=== PATIENT | female | born 1985 | race Caucasian/White ===

== ENCOUNTER → 2020-10-17 15:04 | Outpatient (CLI) | payer OTHER, SELFPAY ==
--- NOTE | ~2020-10-17 | US_ITS ---
EXAMINATION: US OB <=14 wk fetus w TV EXAM DATE: 10/17/2020 15:39 INDICATION: O36.80X9 - with inconclusive viability, other fetus. 1st trimester. TECHNIQUE: Pelvic obstetrical transabdominal sonogram was performed by a technologist. There are mu ltiple grayscale and Doppler images available for interpretation. There are no earlier studies of th is gestation for comparison. FINDINGS: Uterus measures 11.3 x 4.7 x 6.7 cm. There is intrauterine gestation sac. pole with heart rate confirmed at 175 beats per minute. The 1.7 cm crown-rump length corresponds to estimated gestational age by ultrasound of 8 weeks 1 day, estimated date of confinement 05/28/2021. Yolk sac i s identified. There is no sonographic evidence of subchorionic hemorrhage. Both ovaries are ident ified and are morphologically normal, the right likely contains the corpus luteal cyst. IMPRESSION: Early live intrauterine gestation, age by ultrasound 8 weeks 1 day. Reviewed, dictated and finalized at location A. IMPRESSION: Early live intrauterine gestation, age by ultrasound 8 weeks 1 day .
== END ==
PROVIDERS: Visit Provider Student in an Organized Health Care Education/Training Program
DX: O36.80X9 Pregnancy with inconclusive fetal viability, other fetus (principal); Z3A.08 8 weeks gestation of pregnancy
CPT/HCPCS: 76801; 76817

== ENCOUNTER 2020-12-04 11:02 | Observation (INO) | payer OTHER, SELFPAY ==
[2020-12-04 11:24] VITALS: BP 133/71; PULSE 94
[2020-12-04 11:40] VITALS: BMI 41.8
--- NOTE | 2020-12-04 11:41 | OBADM ---
This patient, Alejandrina Garza, admitted to the OB room OB Post 116 for observation. Patient/family oriented to hospital policies and general routines including ID bracelet, bed and alarms, visiting hours, pain management, procedures, bathroom and other care routines, personal items, smoking policy, room service/diet, and visiting hours. Patient/Family are encouraged to report perceived risks to care and to ask questions if they do not understand what they are told or what they should do.
--- NOTE | 2020-12-04 11:45 | PC.NURSE ---
FHT doppled at 181
[2020-12-04 12:17] LABS: Add Urine Microscopic? YES; Appearance Urine Cloudy (Clear); Bacteria Urine Trace /hpf; Bilirubin Urine Negative (Negative); Blood Urine 2+ (Negative); Color Urine Yellow (Yellow); Glucose Urine UA Negative (Negative); Ketones Urine Negative (Negative); Leukocyte Esterase Ur Negative LEU/UL (NEGATIVE); Mucus Urine Rare /lpf; Nitrate Urine Negative (Negative); Protein Urine 1+ mg/dL (Negative); RBC Urine 21-50 /hpf (0-2); Specific Grav Ur 1.014 (1.001-1.035); Squamous Epithelial Cell Urine Many /hpf (Few); Urobilinogen Urine Negative mg/dL (<2.0); WBC Urine 0-3 /hpf (0-3)
[2020-12-04 12:30] VITALS: RESP 16; TEMP 37.3
--- NOTE | 2020-12-04 13:08 | PC.NURSE ---
6935- Spoke with Dr. Goodrich regarding patient admission for sever lower back pain 11/14. Patient states the pain in the middle of her back, crushing spinal pain. Patient reports no urinary symptoms, vaginal bleeding, leakage or abdominal pain. Urinalysis results discussed with . CARON doppled at 181. Per MD, patient should go to ER for a complete workup.
--- NOTE | 2020-12-04 13:10 | PC.NURSE ---
1230- In patient room, at bedside discussing plan of care with patient after talking to Dr. Goodrich. Patient became defensive, stating that I need to be prescribed drugs to go home with or something needs to be figured out, no one gives a shit about me. This is causing something to be wrong. I have never had this type of pain before being . Informed patient that I would speak to the ER about their procedures for the waiting room due to Covid. Discussed if patient had taken anything with tylenol in it since her allergy, she had been previously prescribed hydrocodone by her primary physician in December of last year. Patient stated that she has never taken that from him. Will discuss with the ER at this time their protocol.
--- NOTE | 2020-12-04 13:16 | PC.NURSE ---
1237- Spoke with ER charge nurse Lucila on procedures to be seen in the ER. Patient will have to be taken to the waiting room and wait to be seen.
--- NOTE | 2020-12-04 13:20 | PC.NURSE ---
6260- In patient room, discussing with patient that ER will see her but she will have to wait in the waiting room . Patient states that she is refusing to go to ER and doesnt want to leave until what is going on is figured out. I will call Dr. Goodrich to see if she has any other options for patient at this time.
--- NOTE | 2020-12-04 13:22 | PC.NURSE ---
1248- Spoke with Dr. Goodrich. Per her order, patient is to be discharged form OB and should be seen for a full workup in the ER or can go to an urgent care to be seen.
--- NOTE | 2020-12-04 13:27 | PC.NURSE ---
1250- In patient room, discussing with patient her plan of care. Patient needs to be seen in ER, patient is refusing and will go home. Will gather patient discharge instructions. patient agreeable to plan.
--- NOTE | 2020-12-04 13:29 | PC.NURSE ---
1300- In room to discharge patient. Patient outwardly unhappy, told this RN that If i go home and miscarry my baby this is your fault. Also accused this RN of telling her to go home and take tylenol regardless of her allergy. Explained to her that I was questioning if she had ever taken hydrocodone before, which was in her medication list, in case she could take that medication for her discomfort. Explained the importance of not taking tylenol if she has an allergy to it. Discharge instructions given to patient, patient states that she will be going somewhere else to be seen.
--- NOTE | 2020-12-04 13:35 | PC.NURSE ---
1305- Patient ambulated off the unit, Informed Dr. Goodrich of patient decision to be discharged to home and refusing to go to ER. Dr. Goodrich will see patient tomorrow in the office.
--- NOTE | 2020-12-22 13:02 | PM.OBTRLD ---
OB - Triage/Final Diagnosis Visit Information Comments/Additional reasons for admission: I have assessed the risk for this patient, Alejandrina Garza, and determined that she would benefit from observation care. Evaluation Laboratory results: Laboratory Tests 12/04/20 11:19 Urine Color Yellow Urine Appearance Cloudy H Urine pH 8.0 Ur Specific [place] 1.014 Urine Protein 1+ H Urine Glucose (UA) Negative Urine Ketones Negative Ur Blood (Man) 2+ H Urine Nitrate Negative Urine Bilirubin Negative Urine Urobilinogen Negative Ur Leukocyte Esterase Negative Urine RBC 21-50 H Urine WBC 0-3 Ur Squamous Epith Cells Many H Urine Bacteria Trace Urine Mucus Rare Final Diagnosis (1) Lower back pain: Code(s): M54.5 - Low back pain Status: Acute
== END 2020-12-04 13:05 | disposition home or self-care (01) ==
PROVIDERS: Admitting Provider Student in an Organized Health Care Education/Training Program; PCP Emergency Medicine; Visit Provider Student in an Organized Health Care Education/Training Program
DX: O99.891 Other specified diseases and conditions complicating pregnancy (principal); M54.5 Low back pain; Z3A.14 14 weeks gestation of pregnancy
CPT/HCPCS: 81001; 87086; 87088; G0378; G0379

== ENCOUNTER → 2021-01-16 11:20 | Outpatient (CLI) | payer OTHER, SELFPAY ==
--- NOTE | ~2021-01-16 | US_ITS ---
EXAMINATION: US OB /maternal detail DATE: 01/16/2021 12:16 INDICATION: Encounter for other specified screening. TECHNIQUE: Real-time ultrasound of the pelvis was performed. COMPARISON: Ultrasound 10/17/2020 FINDINGS: There is a single living fetus in breech presentation. The placenta is anterior, 3.9 cm from the cer vix. heart rate is 141 beats per minute (bpm). The amniotic fluid volume is subjectively normal . The following biometric data were obtained: Biparietal diameter (BPD): 5.0 cm; head circumference (HC): 19.0 cm; abdominal circumference (AC): 15 .9 cm; femur length (FL): 3.3 cm. These measurements are concordant. Estimated weight is 376 g +/- 56 g, which correlates with 26th percentile when 05/28/21 is used as estimated date of delivery. As single measurements, these parameters are each equal to the following estimated gestational ages w ith ranges of +/- 2 standard deviations: BPD: 21 weeks 0 days (19 weeks 2 days - 22 weeks 5 days). HC: 21 weeks 2 days (19 weeks 6 days - 22 weeks 5 days). AC: 21 weeks 0 days (19 weeks 0 days - 23 weeks 1 days). FL: 20 weeks 2 days (18 weeks 3 days - 22 weeks 1 days). estimated gestational age based solely on measurements from this exam is 20 weeks 6 days +/- 1 weeks 3 days. The cerebral ventricles, cerebellum, cisterna magna, nuchal fold, and visualized portions of the spin e are normal. The upper lip is not well visualized. The heart is normal. The diaphragm, stomach, kidn eys, and bladder are normal. There are two umbilical arteries to yield a 3-vessel cord. The cord inse rtion is normal. The arms/hands and legs/feet are normal. IMPRESSION: 1. Single living fetus in breech presentation. 2. Estimated weight is 376 g +/- 56 g, which correlates with 26th percentile when 05/28/21 is u sed as estimated date of delivery. This date was set by ultrasound on 10/17/2020. 3. Normal anatomic survey. Reviewed, dictated and finalized at location A. IMPRESSION: 1. Single living fetus in breech presentation. 2. Estimated weight is 376 g +/- 56 g, which correlates with 26th percen tile when 05/28/21 is used as estimated date of delivery. This date was set by agnes loya on 10/17/2020. 3. Normal anatomic survey.
== END ==
PROVIDERS: Visit Provider Obstetrics & Gynecology
DX: Z34.92 Encounter for supervision of normal pregnancy, unspecified, second trimester (principal); Z3A.20 20 weeks gestation of pregnancy
CPT/HCPCS: 76805

== ENCOUNTER → 2021-03-21 15:04 | Outpatient (CLI) | payer OTHER, SELFPAY ==
--- NOTE | ~2021-03-21 | US_ITS ---
EXAMINATION: US OB follow up DATE: 03/21/2021 15:30 INDICATION: Follow-up growth TECHNIQUE: Real-time transabdominal obstetric ultrasound. Comparison to prior examinations dated 01/05 and 10/17/2020 FINDINGS: screening. Evaluate growth. There is a single living fetus in breech presentation. The placenta is anterior without placenta pre via. cardiac activity and movement is noted with a heart rate of 154 beats per minute. T he amniotic fluid volume is normal. LAMIN measures 10.5 cm. The following biometric data were obtained: BPD: 76mm corresponds to gestational age 30 weeks 3 days. Head circumference: 296mm corresponds to gestational age 32 weeks 5 days. Abdominal circumference: 258mm corresponds to gestational age 30 weeks 0 days. Femur length: 59mm corresponds to gestational age 30 weeks 6 days. Estimated weight: 1598 grams +/- 240grams, 40th percentile.] Limited survey demonstrates a normal appearance to the upper lip. IMPRESSION: 1. Single living intrauterine in breech presentation with an estimated gestational age of 30 weeks 2 days by inititial ultrasound. Appropriate interval growth. 2. Normal placenta. Reviewed, dictated and finalized at location A. [employer] IMPRESSION: 1. Single living intrauterine in breech presentation with an estimat ed gestational age of 30 weeks 2 days by inititial ultrasound. Appropriate int erval growth. 2. Normal placenta.
== END ==
PROVIDERS: Visit Provider Obstetrics & Gynecology
DX: O99.213 Obesity complicating pregnancy, third trimester (principal); Z3A.30 30 weeks gestation of pregnancy
CPT/HCPCS: 76816

== ENCOUNTER → 2021-04-17 12:44 | Outpatient (CLI) | payer OTHER, SELFPAY ==
--- NOTE | ~2021-04-17 | US_ITS ---
EXAMINATION: US OB follow up DATE: 04/17/2021 13:11 INDICATION: growth assessment during third trimester TECHNIQUE: Real-time ultrasound of the pelvis was performed. The interpreting radiologist was not pre sent for the study. COMPARISON: 03/21/2021 FINDINGS: There is a single living fetus in vertex presentation. The placenta is anterior and 8.8 cm from the internal cervical os. cardiac activity and movement are noted. heart rate is 141 beats per minute (bpm). The amniotic fluid index is 16.4 cm which is normal. The following biometric data were obtained: Biparietal diameter (BPD): 8.6 cm; head circumference (HC): 31.6 cm; abdominal circumference (AC): 30 .1 cm; femur length (FL): 6.5 cm. These measurements are concordant. Estimated weight is 2360 g +/- 354 g, which correlates with the 44th percentile when 05/28/2021 is used as estimated date of delivery. As single measurements, these parameters are each equal to the following estimated gestational ages w ith ranges of +/- 2 standard deviations: BPD: 34 weeks 5 days ( 31 weeks 4 days - 37 weeks 5 days). HC: 35 weeks 4 days ( 32 weeks 4 days - 38 weeks 4 days). AC: 34 weeks 1 days ( 31 weeks 1 days - 37 weeks 0 days). FL: 33 weeks 4 days ( 30 weeks 5 days - 36 weeks 4 days). estimated gestational age based solely on measurements from this exam is 34 weeks 4 days +/- 2 weeks 3 days. IMPRESSION: 1. Single living fetus in vertex presentation. 2. Estimated weight is 2360 g +/- 354 g, which correlates with the 44th percentile when 05/28/19 22 is used as estimated date of delivery. 3. Normal amniotic fluid index. Reviewed, dictated and finalized at location F. [employer] IMPRESSION: 1. Single living fetus in vertex presentation. 2. Estimated weight is 2360 g +/- 354 g, which correlates with the 44th p ercentile when 05/28/2021 is used as estimated date of delivery. 3. Normal amniotic fluid index.
== END ==
PROVIDERS: Visit Provider Obstetrics & Gynecology
DX: Z34.93 Encounter for supervision of normal pregnancy, unspecified, third trimester (principal); Z3A.34 34 weeks gestation of pregnancy
CPT/HCPCS: 76816

== ENCOUNTER → 2021-05-15 15:51 | Outpatient (CLI) | payer OTHER, SELFPAY ==
--- NOTE | ~2021-05-15 | US_ITS ---
US OB follow up DATE: 05/15/2021 16:25 INDICATION: Routine care TECHNIQUE: Real-time imaging and Doppler analysis COMPARISON: 04/17/2021 of central ultrasound examination FINDINGS: Live zee intrauterine gestation, fetus in vertex presentation. heart rate of 14 3 bpm. movement was detected. Anterior placenta, lower margin well out of range of the internal os. Amniotic fluid index measures 17.8 cm, within normal range. (5th percentile LAMIN: 7.3 cm; 95th percent ile LAMIN: 23.9 cm. Biparietal diameter 9.47 cm; 38 weeks 4 days Head circumference 33.66 cm; 38 weeks 4 days Abdominal circumference 33.39 cm; 37 weeks 3 days Femur length 7.24 cm; 37 weeks 0 days Composite age by Hadlock formula based upon the current examination would be 37 weeks 6 days +/- 2 we eks 5 days with ALFONZO of 05/30/2021, compared to 05/28/2021 by LMP. Estimated weight is 3238 +/- 485.7 g. Estimated weight GP: 47.4% Femur length/BPD 76.38, within normal range of 71.0-87.0 Head circumference/abdominal circumference 1.01, within normal range of 0.90-1.05 Femur length/abdominal circumference 21.67, within normal range of 20.00-24.00 Femur length/head circumference 21.50, within normal range of 20.89-22.69. IMPRESSION: Estimated weight is 3238 +/- 485.7 Grams Amniotic fluid index 17.8 cm, within normal range Reviewed, dictated and finalized at Location A. Reviewed, dictated and finalized at location A. UCTION ASSEMBLER
== END ==
PROVIDERS: Visit Provider Obstetrics & Gynecology
DX: Z36.9 Encounter for antenatal screening, unspecified (principal); O99.210 Obesity complicating pregnancy, unspecified trimester; Z68.41 Body mass index [BMI] 40.0-44.9, adult; Z3A.00 Weeks of gestation of pregnancy not specified
CPT/HCPCS: 76816

== ENCOUNTER → 2022-03-14 15:35 | Outpatient (CLI) | payer OTHER, SELFPAY ==
--- NOTE | ~2022-03-14 | US_ITS ---
US thyroid INDICATION: Autoimmune thyroiditis TECHNIQUE: Real-time sonographic images of the thyroid gland were obtained. COMPARISON: No prior studies for comparison. FINDINGS: The right thyroid lobe measures 5.8 x 1.9 x 1.9 cm. The left thyroid lobe measures 5.1 x 1 .7 x 1.9 cm. There is diffusely heterogeneous echotexture and echogenicity throughout the thyroid gla nd. No discrete nodules identified. Normal vascular flow is present. IMPRESSION: 1. Mildly enlarged heterogeneous thyroid gland without discrete nodule. Reviewed, dictated and finalized at location A. [employer]
== END ==
PROVIDERS: PCP Emergency Medicine; Visit Provider Emergency Medicine
DX: E06.3 Autoimmune thyroiditis (principal)
CPT/HCPCS: 76536

== ENCOUNTER 2025-02-16 12:47 | Observation (INO) | payer OTHER, SELFPAY ==
--- OUTSIDE RECORDS SUMMARY | 2023-12-24 09:45 | XMS_ITS ---
Author Organization [facility] Address [address] [place] [address] Care Team Providers Care Apprentice Embalmer Name Role Phone Iliana Jimenes Primary Care Provider [phone] Iliana Jimenes MD Unavailable Unavailable REASON FOR VISIT yd/4 month follow up/flc Encounters Encounter Location Date Provider Diagnosis [facility] [address] [facility] [address] [place] [address] 12/24/2023 Iliana Jimenes Plan Of Treatment No Information Progress Notes * Alejandrina WEBB MDOB:1985 (39 yo F)Acc No.[id number]:12/24/2023 Progress Notes Patient: Alejandrina WHYTE Appointment Provider: Brigitte JIMENES MD :1985 A ge:38 Y S ex:Female Date:12/24/2023 Address:[address] [facility] Subjective: * Chief Complaints: * 1 . Yd/4 month follow up/flc. * Medical History: Objective: * Vitals: Assessment: Plan: * Treatment: * Billing Information: * Visit Code: * Procedure Codes: * Electronic signature of Iliana Jimenes MD on 02/16/2025 at 02:04 PM TANK FARM OPERATOR Sign off status: Pending * Appointment Provider: Brigitte JIMENES MD Date: 0 12/24/2023 Generated for Printi ng/Faxing/eTransmitting on: 1 04/18/2024 02:04 PM TANK FARM OPERATOR
--- OUTSIDE RECORDS SUMMARY | 2025-01-18 08:40 | XMS_ITS ---
Author Organization [facility] Address [address] [place], [place] [address] Care Team Providers Care Mobile Homes Repairer Name Role Phone Adriane Mccormick Unavailable [phone] REASON FOR VISIT 1 month f/u Medications Medication SIG (Take, Route, Frequency, Duration) Notes Start Date End Date Status SUMAtriptan Succinate 50 MG Tablet 1 tablet as needed, may take second dose at least 2 hours after first dose up to 4 tablets per day as needed Orally Once a day Active Benadryl Allergy 25 MG Tablet 1 tablet a t bedtime as needed Orally Once a day Active Hydroxychloroquine Sulfate 2 00 MG Tablet as directed Orally Active Active Synthroid 75 MCG Tablet 1 tablet in the morning on an empty stomach Orally Once a day Active ZyrTEC Allergy 10 MG Tablet 1 tablet Ora lly Once a day Active Flonase Allergy Relief 50 MCG/ACT Suspension 1 spray in each nostril Nasally Twice a day Active Vitamin B Complex Ac tive Vitamin D3 Active Magnesium Active Candy Allergy 180 MG Tablet 1 tablet S wallow whole with water; do not take with fruit juices. Orally Once a day Active Ibuprofen Active Encounters Encounter Location Date Provider Diagnosis [facility] Dr. Mccormick [address] [place] [id number] 01/18/2025 Adriane Mccormick Plan Of Treatment Next Appt Details Provider Name:Adriane Mccormick, 12:40:00 PM, [address] [place] [address], [phone], History and Physical Notes * HPI (History of Present Illness) Category Sub-Category Detail Notes Category Not es History of Present Illness Verbal consent provi ded by patient to proceed with this visit. This visit was performed in office via provider and patient located in primary care office with real time audio with video. Progress Notes * Alejandrina WEBBDOB:1985 ([age] yo F)Acc No.[id number]:01/18/2025 Progress Note Patient: Alejandrina Hewitt Provider: Torres Mccormick MD :1985 A ge:39 Y S ex:Female Date:01/18/2025 Phone: Address:[address] [place], [place] [address] Subjective: * Chief Complaints: * 1 month f/u * HPI: H istory of Present Illness: Verbal consent provided by patient to proceed with this visit. This visit was performed in office via provider and patient located in primary care office with real time audio with video. * Medications: T akingAllegra Allergy 180 MG Tablet 1 tablet Swallow whole with water; do not take with fruit juices. Orally Once a day Ibuprofen Magnesium Vitamin D3 Vitamin B Complex Flonase Allergy Relief 50 MCG/ACT Suspension 1 spray in each nostril Nasally Twice a day ZyrTEC Allergy 10 MG Tablet 1 tablet Orally Once a day Benadryl Allergy 25 MG Tablet 1 tablet at bedtime as needed Orally Once a day SUMAtriptan Succinate 50 MG Tablet 1 tablet as needed, may take second dose at least 2 hours after first dose up to 4 tablets per day as needed Orally Once a day Hydroxychloroquine Sulfate 200 MG Tablet as directed Orally Synthroid 75 MCG Tablet 1 tablet in the morning on an empty stomach Orally Once a day Taking Candy Allergy 180 MG Tablet 1 tablet Swallow whole with water; do not take with fruit juices. Orally Once a day Taking Ibuprofen Taking Magnesium Taking Vitamin D3 Taking Vitamin B Complex Taking Flonase Allergy Relief 50 MCG/ACT Suspension 1 spray in each nostril Nasally Twice a day Taking ZyrTEC Allergy 10 MG Tablet 1 tablet Orally Once a day Taking Benadryl Allergy 25 MG Tablet 1 tablet at bedtime as needed Orally Once a day Taking SUMAtriptan Succinate 50 MG Tablet 1 tablet as needed, may take second dose at least 2 hours after first dose up to 4 tablets per day as needed Orally Once a day Taking Taking Hydroxychloroquine Sulfate 200 MG Tablet as directed Orally Taking Synthroid 75 MCG Tablet 1 tablet in the morning on an empty stomach Orally Once a day * Electronic signature of Mychal Mccormick MD on 02/16/2025 at 02:04 PM MANAGER BODY Sign off status: Pending * Provider: Torres Mccormick MD Date: 1 Generated for Kyra sykes/Chintan/Alexandra on: 04/18/2024 02:04 PM MANAGER BODY
--- NOTE | 2025-02-16 13:28 | PC.NURSE ---
1528 - Dr. Dallin Enciso notified that pt is refusing the medication he prescribed for discharge. New orders received. Pt SAYDA.
[2025-02-16 13:33] VITALS: BP 143/66; PULSE 87
--- NOTE | 2025-02-16 13:36 | OBADM ---
This patient, Alejandrina Webb, admitted to the OB room OB Post 115 for observation. Patient/family oriented to hospital policies and general routines including ID bracelet, bed and alarms, visiting hours, pain management, procedures, bathroom and other care routines, personal items, smoking policy, room service/diet, and visiting hours. Patient/Family are encouraged to report perceived risks to care and to ask questions if they do not understand what they are told or what they should do.
[2025-02-16 13:41] VITALS: BMI 46.5
[2025-02-16 13:46] VITALS: BP 134/46; PULSE 94
[2025-02-16 14:01] VITALS: BP 128/71; PULSE 86
[2025-02-16 14:03] LABS: Add Urine Microscopic? YES; Appearance Urine Cloudy (Clear); Glucose Urine UA Negative (Negative); Leukocyte Esterase Ur 1+ LEU/UL (Negative); Need Manual Microscopic Reviewed; Nitrate Urine Negative (Negative); Non Pathogenic Casts 0-2; Specific Grav Ur 1.017 (1.001-1.035)
--- OUTSIDE RECORDS SUMMARY | 2025-02-16 14:05 | XMS_ITS | Clinical Summary ---
Author Organization [facility] Address [address] [place] [address] Care Team Providers Care Railroad Switchman Name Role Phone Rosalba Mcneil MD Primary Care Provider [phone] Allergies Active Allergy Reactions Criticality Noted Date Comments Acetaminophen Hives Medium 06/28/2016 Erythromycin Hives Medium 06/28/2016 All mycins Medications SUMAtriptan 50 MG tablet Take 50 mg by mouth 2 (two) times daily as needed for Migraine. Max of 4 tablets (200 mg) in 24 hours. Active diphenhydrAMINE 25 MG capsule Take 25 mg by mouth every 6 (six) hours as needed for Itching. Active famotidine 20 MG tablet Take 20 mg by mouth 2 (two) times daily. Active calcium carbonate 500 MG chewable tablet Chew 1 tablet by mouth daily. Active vitamin 27-1 MG Tab tablet Take 1 tablet by mouth daily. Active oxyCODONE immediate release 5 MG immediate release tabletIndicatio ns:Acute Pain < 7 Day Supply Take 1 tablet (5 mg total) by mouth every 6 (six) hours as needed. Indications: Acute Pain < 7 Day Supply 10 tablet 06/02/2021 Active Active Problems Problem Noted Date Diagnosed Date Arrest of descent, delivered, current hospitaliz ation 06/02/2021 delivery delivered 06/02/2021 05/29/2021 Immunizations Immunization Administration Dates Next Due Influenza Adult (Generic) 01/14/2021 Tdap (Generic) 04/21/2021,12/28/2012 Family History Medical History Relation Comments None Brother None Father None Mother None Sister Relation Status Comments Brother Alive Father Alive Mother Alive Sister Alive Social History Tobacco Use Types Packs/Day Years Used Date Smoking Tobacco: Never Smokeless Tobacco: Never Alcohol Use Standard Drinks/Week Comments Not Currently 0 (1 standard drink = 0.6 oz pur e alcohol) Comments No Sex and Gender Information Value Date Recorded Sex Assigned at Not on file Legal Sex Female 10:33 AM LICENSED MENTAL HEALTH COUNSELOR Gender Identity Not on file Sexual Orientation Not on file Last Filed Vital Signs Vital Sign Reading Time Taken Comments Blood Pressure 116/64 06/02/2021 7:27 AM LICENSED MENTAL HEALTH COUNSELOR Pulse 71 06/02/2021 7:27 AM LICENSED MENTAL HEALTH COUNSELOR Temperature 36.7 C (98 F) 06/02/2021 7:27 AM LICENSED MENTAL HEALTH COUNSELOR Respiratory Rate 20 06/02/2021 7:27 AM LICENSED MENTAL HEALTH COUNSELOR Oxygen Saturation 98% 06/02/2021 7:27 AM LICENSED MENTAL HEALTH COUNSELOR Inhaled Oxygen Concentration - - Weight 130.6 kg (288 lb) 05/29/2021 5:00 PM LICENSED MENTAL HEALTH COUNSELOR Height 165.1 cm (5' 5) 05/29/2021 5:00 PM LICENSED MENTAL HEALTH COUNSELOR Body Mass Index 47.93 05/29/2021 5:00 PM LICENSED MENTAL HEALTH COUNSELOR Plan of Treatment Health Maintenance Due Date Last Done Comments Cervical Cancer Screening Pap Smear (Age 30 to 64) Every 3 Years 1987 Annual Physical 1990 Hepatitis C 2005 Hepatitis A Vaccines (2 of 2 - 2-dose series) 05/11/2006 11/08/2005 Cervical Cancer Screening Pap with HPV Testing (Age 30 to 64) Every 5 Years 2017 Cervical Cancer Screening with HPV 2017 COVID-19 Vaccine ( season) 2024 Influenza Adult (#1) 2025 01/14/2021, 01/05/20 13 DTaP, Tdap and Td Vaccines (8 - Td or Tdap) 04/21/2031 04/21/2021, 12/28/2012, 07/15/2002, Additional history exists Hepatitis B Vaccines Completed 02/06/1998, 08/25/1997, 09/28/1996 Meningococcal Vaccine Aged Out 11/08/2005 No joel hina eligible based on patient's age to complete this topic HPV Vaccines Completed 12/28/2012, 11/2007, 01/23/2007 Meningococcal B Vaccine Aged Out No l onger eligible based on patient's age to complete this topic Pneumococcal Vaccine: Pediatrics (0 to 5 Years) and At-Risk Patients (6 to 49 Years) Aged Out No longer eligible based on patient's age to complete this topic RSV Immunizations Under 20 Months Aged Out No longer eligible based on patient's age to complete this topic Insurance [facility] Advance Directives * Full Code (Latest Code Status on File) Date Activated Date Inactivated Comments 05/31/2021 1:56 AM 06/02/2021 3:38 PM * Full Code Date Activated Date Inactivated Comments 05/29/2021 6:30 PM 05/31/2021 1:56 AM * Full Code Date Activated Date Inactivated Comments 05/27/2021 12:57 PM 05/27/2021 3:11 PM Care Teams Railroad Switchman Relationship Specialty Start Date End Date Rosalba Mcneil MD PCP - General OBGYN 05/22/21
--- OUTSIDE RECORDS SUMMARY | 2025-02-16 14:05 | XMS_ITS | Encounter Summary ---
Author Organization [facility] Address [facility] [place] [address] Care Team Providers Care Roving Tester Laboratory Name Role Phone Rosalba Mcneil MD Primary Care Provider [phone] Encounter Details Date Type Department Care Team (Late st Contact Info) Description 06/13/[address] [facility] [address] [place] [id number] Gina Perez RN Social History Tobacco Use Types Packs/Day Years Used Date Smoking Tobacco: Never Smokeless Tobacco: Never Alcohol Use Standard Drinks/Week Comments Not Currently 0 (1 standard drink = 0.6 oz pur e alcohol) Comments No Sex and Gender Information Value Date Recorded Sex Assigned at Not on file Legal Sex Female 10:33 AM [employer] Gender Identity Not on file Sexual Orientation Not on file COVID-19 Exposure Response Date Recorded In the last 10 days, have yo u been in contact with someone who was confirmed or suspected to have Coronavirus/COVID-19? No / Unsure 05/29/2021 11:18 PM [employer] documented as of this encounter Functional Status * RETIRED Are you deaf or do you have serious difficulty hearing Answer Date of Assessment Author Status No 05/29/2021 11:22 PM [employer] Acti ve * RETIRED Are you blind or do you have serious difficulty seeing, even when wearing glasses? Answer Date of Assessment Author Status No 05/29/2021 11:22 PM [employer] Acti ve * Do you have serious difficulty walking or climbing stairs? Answer Date of Assessment Author Status No 05/29/2021 11:22 PM [employer] Maeve Sahu RN Active * Do you have difficulty dressing or bathing? Answer Date of Assessment Author Status No 05/29/2021 11:22 PM Maeve Ann RN Active * Because of a physical, mental, or emotional condition, do you have difficulty doing errands alone such as visiting a doctor's office or shopping? Answer Date of Assessment Author Status No 05/29/2021 11:22 PM Maeve Ann RN Active documented as of this encounter Mental Status * Because of a physical, mental, or emotional condition, do you have serious difficulty concentrating, remembering, or making decisions? Answer Entry Date Author Status No 05/29/2021 11:22 PM Maeve Ann RN Active documented in this encounter Plan of Treatment Not on file documented as of this encounter Visit Diagnoses Not on filedocumented in this encounter Care Teams Roving Tester Laboratory Relationship Specialty Start Date End Date Rosalba Mcneil MD PCP - General OBGYN 05/22/21 documented as of this encounter
--- OUTSIDE RECORDS SUMMARY | 2025-02-16 14:05 | XMS_ITS | Patient Health Record ---
Author Organization [facility] Address [address] [place] [place] [address] Care Team Providers Care Director Learning Name Role Phone Adriane Mccormick Unavailable [phone] Allergies Allergen (clinical drug ingredient) Drug/Non Drug Allergy documented on EMR Reaction Allergy Type Onset Date Status chocolate (uncoded) Unknown Allergy Active [place] corn (uncoded) Unknown Allergy Activ e Pollen tree pollen (uncoded) Unknown Allergy Active Wheat wheat (uncoded) Unknown Allergy Acti ve Fish derivative (substance) white fish (uncoded) Unknown Allergy Active acetaminophen Tylenol Unknown Drug Allergy Act eleni casein allergenic extract Casein (Diagnostic) Unknown Drug Allergy Active Mosquito (Diagnostic) Unknown Drug Allergy Active tomato allergenic extract Tomato (Diagnostic) Unknown Drug Allergy Active azithromycin Azithromycin Unknown Drug Allergy A ctive caffeine Caffeine Unknown Drug Allergy Active Mold Unknown Allergy Active Egg White (Egg Protein) Unknown Drug Allergy Active Soy Protein Unknown Drug Allergy Activ e Reason For Referral No Information Medications Medication SIG (Take, Route, Frequency, Duration) Notes Start Date End Date Status ZyrTEC Allergy 10 MG Tablet 1 tablet Ora lly Once a day Active Flonase Allergy Relief 50 MCG/ACT Suspension 1 spray in each nostril Nasally Twice a day Active SUMAtriptan Succinate 50 MG Tablet 1 tablet as needed, may take second dose at least 2 hours after first dose up to 4 tablets per day as needed Orally Once a day Active Benadryl Allergy 25 MG Tablet 1 tablet a t bedtime as needed Orally Once a day Active Vitamin B Complex Ac tive Vitamin D3 Active Magnesium Active Candy Allergy 180 MG Tablet 1 tablet S wallow whole with water; do not take with fruit juices. Orally Once a day Active Hydroxychloroquine Sulfate 2 00 MG Tablet as directed Orally Active Active Ibuprofen Active Synthroid 75 MCG Tablet 1 tablet in the morning on an empty stomach Orally Once a day Active Social History Section Notes: tobacco: no, quit in 2019 alcohol: no caffeine: yes Problems Problem Type SNOMED Code ICD Code Onset Dates Problem Status W/U Status Risk Notes Problem Hypothyroidism (24488846) Hypothyroidism, unspecified (E03.9) Active confirmed Problem Inflammatory arthritis (3560278) Inflammatory arthritis (M19.90) Active confirmed Problem Chronic migraine (834349853) Chronic migraine (G43.709) Active confirmed Problem Vitamin D deficiency (69777248) Vitamin D deficiency (E55.9) Active confirmed Vital Signs Heart Rate 81 /min 12/21/2024 Height-cm 165.1 cm 12/21/2024 Oximetry 98 % 12/21/2024 Blood pressure diastolic 79 mm Hg 12/21/2024 Weight-kg 119.84 kg 12/21/2024 Height 65 in 12/21/2024 Blood pressure systolic 126 mm Hg 12/21/2024 Weight 264.2 lbs 12/21/2024 BMI 43.96 kg/m2 12/21/2024 Encounters Encounter Location Date Provider Diagnosis [facility] Dr. Mccormick [address] [place], [place] [phone] 12/21/2024 Adriane Mccormick Endocrine, nutrition al and metabolic diseases complicating , second trimester O99.282 ; Hypothyroidism, unspecified E03.9 ; Other fatigue R53.83 and Vitamin D deficiency E55.[address] Mccormick [address] [place], [place] [phone] 01/26/2025 Adriane CASTILLO [facility] [address] [place], [place] [phone] 01/26/2025 Adriane Mccormick [address] [place] [phone] 01/31/2025 Adriane Mccormick [address] [place] [phone] 01/31/2025 Adriane Mccormick Assessments Encounter Date Diagnosis (ICD Code) Assessment Notes Treatment Notes Treatment Clinical Notes Section Notes 12/21/2024 Hypothyroidism, unspecified (ICD-10 - E03.9) 12/21/2024 Endocrine, nutritional and metabolic diseases complicating , second trimester (ICD-10 - O99.282) 12/21/2024 Other fatigue (ICD-10 - R53.83) 12/21/2024 Vitamin D deficiency (ICD-10 - E55.9) 12/21/2024 Pilar Tinoco is a 26-week woman with a history of Una's thyroiditis and inflammatory arthritis, presenting for endocrinology consultation to prevent complications. PregnancyAssessment: Patient is 26 weeks with a male fetus. appears to be progressing normally with good heart rate and movement. Patient reports difficulty sleeping and some food cravings, primarily for protein. She has been unable to maintain her usual exercise routine due to weather constraints. Patient is scheduled for glucose tolerance test in 1-2 weeks. There is a history of complications with her previous , including development of Una's thyroiditis and inflammatory arthritis.Plan:- Continue care with Dr. Townsend- Proceed with scheduled glucose tolerance test at 24 weeks- Recommend continuing gluten-free diet as tolerated- Encourage resuming exercise routine when weather permits in morning or evening- Monitor for signs of thyroiditis, particularly between 4-12 weeks - Schedule follow-up 4-6 weeks for thyroid function assessment Una's ThyroiditisAssessment : Patient has a history of Una's thyroiditis, diagnosed after her previous . Currently taking Synthroid 75 mcg daily. Thyroid function tests are being monitored during , with TSH scheduled to be checked with upcoming glucose tolerance test.Plan:- Continue Synthroid 75 mcg PO daily- Instruct patient to take Synthroid first thing in the morning with water only, waiting as close to an hour as possible before consuming other food or medications- Order TSH, Free T4, and Free T3 tests- Review thyroid function test results when available and adjust treatment as necessary- Schedule follow-up 4-6 weeks for comprehensive thyroid function assessment Inflammatory ArthritisAssessment: Patient has a history of inflammatory arthritis, currently managed with hydroxychloroquine. The condition significantly impacted her mobility after her previous , taking two years to regain function. Patient is under the care of a motor lodge clerk for this condition.Plan:- Continue hydroxychloroquine as prescribed by motor lodge clerk- Maintain follow-up with rheumatology for ongoing management- Monitor for exacerbation of symptoms Vitamin D DeficiencyAssessment: Patient reports previous vitamin D supplementation of 2000 IU daily as prescribed by motor lodge clerk. She discontinued vitamins and supplements early in due to difficulty swallowing. Given the importance of vitamin D during and ACOG recommendations, reassessment of vitamin D status is warranted.Plan:- Order vitamin D level- Consider initiating vitamin D supplementation up to 4000 IU daily based on test results and ACOG recommendations- Educate patient on the importance of vitamin D supplementation during AllergiesAssessment: Patient reports multiple allergies, including Tylenol and Z-Pac. Food allergies include wheat (primary), with possible sensitivities to corn and soy. Patient has been living gluten-free since October 2022. Reports immediate sunburn with sun exposure and sinus issues.Plan:- Continue current allergy management plan- Advise maintaining gluten-free diet as tolerated during - Recommend sun protection and avoiding sun exposure between 11 AM and 4 PM as per motor lodge clerk's advice- Consider referral to receiving barn custodian for comprehensive evaluation if symptoms worsen History of Pneumonia and COVID-19Assessment: Patient reports history of pneumonia in 2023, which responded well to antibiotic treatment. She also had severe COVID-19 in 2021, three months , which led to hospitalization of her child and significant illness for the patient. This illness preceded her Una's diagnosis.Plan:- Monitor for any respiratory symptoms during and period- Ensure patient is up-to-date on vaccinations, including influenza and COVID-19 boosters, as appropriate for Plan for DST to assess for hypercortisolism - patient is near third trimester and this will cause false elevation of cortisol. Spent 30 minutes preparing to see the patient (ex review of tests/chart), obtaining and / or reviewing separately obtained history, performing a medically appropriate examination and/or evaluation, counseling and educating the patient/family/caregi tita, ordering medications, tests, or procedures, referring and communicating with other health after school caregiver, documenting clinical information in the electronic or other health record, independently interpreting results and communicating results to the patient/family/caregi tita and care coordinating patient plan. Patient alert and oriented x 4 and aware of discussion noted above and in agreeance to plan in management of hypothyroidism in , hx of vit d def and autoimmune concerns. Plan Of Treatment Next Appt Details Provider Name:Adriane Mccormick, 12:40:00 PM, [address] [place] [address], [phone], Insurance Providers Payer Name Payer Address Payer Phone Subscriber Number Group Number Insured Name Patient Relationship to Insured Coverage Start Date Coverage End Date [facility] [address] [place] [phone] [id number] Jon Alejandrina Self - patient is the insured Medical (General) History Medical History History ICD Code Una thyroiditis E06.3 Inflammatory arthritis M19.90 Vitamin D deficiency E55.9 Chronic migraine G43.709 Surgical History Surgery Date(Month/Year) emergency 2021 D&C 2011 appendectomy 90s addenoidectomy and tonsillectomy 90s Hospitalization History Reason Date(Month/Year) severe intestinal bleeding shoulder injury/ hand therapy covid 2021 pneumonia 2024
--- OUTSIDE RECORDS SUMMARY | 2025-02-16 14:05 | XMS_ITS | Patient Health Record ---
Author Organization [facility] Address [address] [facility] [address] [place] [address] Care Team Providers Care Pelt Inspector Name Role Phone Iliana Moralez Primary Care Provider Iliana Moralez MD Unavailable Unavailable Allergies Allergen (clinical drug ingredient) Drug/Non Drug Allergy documented on EMR Reaction Allergy Type Onset Date Status Chocolate Flavor Unknown Drug Allergy 11/15/2022 Active erythromycin Erythromycin Unknown Drug Allergy 04/26/2022 Active acetaminophen Tylenol Unknown Drug Allergy 05/03/2022 Ac tive Coffee Fruit Unknown Drug Allergy 11/15/2022 Act eleni tomato allergenic extract Tomato (Diagnostic) Unknown Drug Allergy 11/15/2022 Active [place] Unknown Allergy 11/15/2022 Active Eggs or Egg-derived Products Unknown Drug Allergy 11/15/2022 Active Peanut-containing Dr ug Products Unknown Drug Allergy 11/15/2022 Active whole wheat allergenic extract Whole Wheat (Diagnostic) Unknown Drug Allergy 11/15/2022 Active Reason For Referral No Information Medications Medication SIG (Take, Route, Frequency, Duration) Notes Start Date End Date Status Candy-D 24 Hour Ac tive SUMAtriptan - prn nasal *Pick strength-form from [employer] for eRX* Active Magnesium Active Meloxicam 15 MG TAKE 1 TABLET BY MOUTH EVERY DAY FOR 30 DAYS; Duration: 30 Active Hydroxychloroquine Sulfate 200 MG TAKE 1 TABLET BY MOUTH TWICE A DAY; Duration: 90 Active busPIRone HCl 10 MG 1 tablet Orally three a day Active Levothyroxine Sodium 75 MCG 1 tablet in the morning on an empty stomach Orally Once a day; Duration: 30 day(s) Active Plan Of Treatment Pending Test Test Name Order Date X ray : Shoulder, right 06/13/2023 X ray : Scapula, right 06/13/2023 Insurance Providers Payer Name Payer Address Payer Phone Subscriber Number Group Number Insured Name Patient Relationship to Insured Coverage Start Date Coverage End Date [facility] [employer] [address] [address] [place] [address] [id number] Alejandrina Webb Self - patient is the insured Medical (General) History Medical History History ICD Code Una's thyroiditis; Surgical History Surgery Date(Month/Year) Appendectomy; 2022-05-03 section, Date of Procedure: ; 2022-05-03
--- OUTSIDE RECORDS SUMMARY | 2025-02-16 14:05 | XMS_ITS | Clinical Summary ---
Author Organization [facility] Address [address] [place] [phone] Care Team Providers Care Optometric Tech Name Role Phone Jasmine Leavitt MD Primary Care Provi lauren Allergies Active Allergy Reactions Criticality Noted Date Comments Acetaminophen Hives Medium 06/28/2016 Azithromycin Hives Medium 09/29/2023 Casein Other (See comments) Low 02/12/2023 . Egg White Hives,Swelling Medium 02/12/2023 Erythromycin Hives Medium 06/28/2016 All mycins Other Other (See comments) Low 02/12/2023 COD FISH Soy Other (See comments) Low 02/12/2023 . Tomato Other (See comments) Low 02/12/2023 . Wheat Diarrhea,Edema,Heada isabelle,Hives,Itch ing,Stomach upset,Swelling Medium 05/23/2023 Medications diphenhydrAMINE (BENADRYL) 25 mg capsule Take 1 tablet/capsule (25 mg total) by mouth every 6 (six) hours as needed Active fexofenadine-pse udoephedrine (RUSSEL-D 24) 180-240 mg per 24 hr tablet Take 1 tablet by mouth daily Active magnesium gluconate (MAGONATE) 500 mg (27 mg elemental) tabletIndication s:hypomagnesemia Act eleni SUMAtriptan (IMITREX) 50 mg tabletIndication s:Migraine with aura and without status migrainosus, not intractable Take 1 tablet (50 mg total) by mouth once as needed for migraine for up to 1 dose May repeat dose once in 2 hours if no relief. Do not exceed 2 doses in 24 hours. 9 tablet 11 4 Active albuterol HFA (PROVENTIL HFA,VENTOLIN HFA,PROAIR HFA) 90 mcg/actuation inhalerIndicatio ns:Lower respiratory infection (e.g., bronchitis, pneumonia, pneumonitis, pulmonitis) Inhale 2 puffs every 6 (six) hours as needed for wheezing or shortness of breath 1 each 4 Active Additional Information Patient not taking.Reported on 10/18/2024 busPIRone (BUSPAR) 10 mg tabletIndication s:Anxiety TAKE 1 TABLET BY MOUTH THREE TIMES A DAY 300 tablet 1 4 Active Additional Information Patient not taking.Reported on 10/18/2024 desvenlafaxine ER (PRISTIQ) 25 mg tablet extended release 24 hr 24 hr tabletIndication s:Generalized Anxiety Disorder Take 1 tablet (25 mg total) by mouth daily 90 tablet 5 Active Additional Information Patient not taking.Reported on 10/18/2024 hydroxychloroqui ne (PLAQUENIL) 200 mg tablet Take 1 tablet (200 mg total) by mouth 2 (two) times a day 180 tablet 1 5 Active Synthroid 75 mcg tablet TAKE 1 TABLET BY MOUTH EVERY DAY 90 tablet 3 5 Active Active Problems Problem Noted Date Diagnosed Date 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 Stable. Currently on hydroxychloroquine and we will follow up with new employment representative. Immune compromised state from hydroxychloroquine may be contributing to frequent infections. Assessment & Plan (02/12/2023 9:18 AM MS SQL DEVELOPER): Chronic, stable Managed by rheumatology Continue current regimen Update me with any changes Non-seasonal allergic rhinitis due to pollen 11/2022 Assessment & Plan (02/12/2023 9:19 AM MS SQL DEVELOPER): Chronic, stable Continue russel Update me with any changes Anxiety 02/12/2023 Assessment & Plan (04/29/2024 9:53 AM MS SQL DEVELOPER): Chronic, worse Will add Pristiq to her regimen Continue BuSpar Continue current self-care Update me if her symptoms worsen or change Update me in one month Assessment & Plan (02/12/2023 9:38 AM MS SQL DEVELOPER): Chronic, persistent Will start cymbalta 20 mg daily Reviewed healthy habits for mood Update me if they change or worsen 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 02/12/2023 Assessment & Plan (04/29/2024 9:54 AM MS SQL DEVELOPER): Chronic, persistent Will start Pristiq for daily control, continue BuSpar Continue healthy habits for her mood Update me in one month with how she is doing Call if she develops any side effects or concerns Assessment & Plan (02/12/2023 9:38 AM MS SQL DEVELOPER): Acute, new Will start cymbalta 20 mg daily take medication as directed discussed side effects of medication with patient encouraged healthy diet and exercise encouraged patient to see a counselor use support structures you have in place consider meditation-look at Calm albina try to work on healthy sleep habits If mood worsens or changes, please contact the office Contact 911 and go to the ER if becomes suicidal Migraine with aura and witho ut status migrainosus, not intractable 02/12/2023 Assessment & Plan (02/12/2023 9:44 AM MS SQL DEVELOPER): Chronic, stable Continue current regimen Continue imitrex as needed Call if s/sx worsen or do not improve Class 3 severe obesity due t o excess calories without serious comorbidity with body mass index (BMI) of 40.0 to 44.9 in adult 02/12/2023 Assessment & Plan (04/29/2024 9:53 AM MS SQL DEVELOPER): Chronic, improved BMI Follow-up includes: Continue her current healthy lifestyle changes . Assessment & Plan (02/23/2024 10:02 AM MS SQL DEVELOPER): BMI Follow-up includes: education provided. Assessment & Plan (02/12/2023 9:48 AM MS SQL DEVELOPER): BMI Follow-up includes: nutrition counseling. Comments Yes Resolved Problems Problem Noted Date Diagnosed Date Resolved Date Arrest of descent, delivered , current hospitalization 06/02/2021 02/12/2023 delivery delivered 06/02/2021 02/12/2023 Encounters Date Type Department Care Team Description 12/09/2024 12:30 PM CDT Office Visit [facility] [address] [phone] Ronel Vásquez NP Viral URI with cough (Primary Dx); Acute cough 11/22/2024 Orders Only [facility] [address] [address] Jasmine Leavitt MD from Last 3 Months Immunizations Immunization Administration Dates Next Due DTP 07/11/1992, 9,1987,08/21,1987 HPV, Quadrivalent 12/28/2012 HPV, Unspecified 05/15/2007,01/23/2007 Hep A, Adult 11/08/2005 Hep B, Adolescent or Pediatric 02/06/1998,1997,09/28/1996 IPV 07/11/1992, 9,1987, Influenza, Trivalent, Cell Culture-based MDCK, Preservative Free, Antibiotic Free, Intramuscular 03/20/2024 Influenza, Trivalent, IM (MDV) 01/04/2013 Influenza, Unspecified 01/06/2024(Deferr ed: Allergy),01/05/2023(Deferred: Allergy),01/05/2022(Deferred: Allergy),01/14/2021 MMR 07/11/1992,07/30/1988 Meningococcal C Conjugate 11/08/2005 Td, Not Adsorbed 07/15/2002 Tdap 04/21/2021,12/28/2012 Surgical History Surgery Date Site/Laterality Comments SECTION 04/07/2021 - 2022 APPENDECTOMY TONSILLECTOMY/ADENOIDECTOMY DILATION AND CURETTAGE OF UTERUS Medical History Medical History Date Comments Una's disease Hypothyroidism Arthritis Anxiety Migraines Arrest of descent, delivered , current hospitalization 06/02/2021 delivery delivered 06/02/2021 Autoimmune disease Inflammatory Arthrit is Diagnosed 03/2022 Family History Medical History Relation Name Comments Degenerative Disk Disease Father Ashok Hearing loss Father Ashok Hypertension Father Ashok Obesity Father's Sister Kinjal ALS Maternal Grandfather Allergies Maternal Grandmother Iesha Allergy (severe) Maternal Grandmother Iesha Arthritis Maternal Grandmother Iesha COPD Maternal Grandmother Iesha Arthritis Mother Shelbi Hyperlipidemia Mother Shelbi Obesity Mother Shelbi Cancer Paternal Grandfather Efrain Degenerative Disk Disease Paternal Grandfather Efrain mesothiloma Paternal Grandfather Efrain Degenerative Disk Disease Paternal Grandmother Yaz Macular degeneration Paternal Grandmother Yaz Vision loss Paternal Grandmother Yaz Breast cancer Neg Hx Colon cancer Neg Hx Ovarian cancer Neg Hx Relation Name Status Comments Father Ashok Alive Father's Sister Kinjal Maternal Grandfather Alive Maternal Grandmother Iesha Alive Mother Shelbi Alive Paternal Grandfather Efrain Paternal Grandmother Yaz Social History Tobacco Use Types Packs/Day Years Used Date Smoking Tobacco: Never Smokeless Tobacco: Never Tobacco Cessation:Counseling Given: Not Answered AUDIT-C Answer Date Recorded Q1: How often do you have a drink containing alcohol? Monthly or less 10/18/2024 Q2: How many drinks containi ng alcohol do you have on a typical day when you are drinking? Patient does not drink Q3: How often do you have si x or more drinks on one occasion? Never 10/18/2024 PHQ-2 Answer Date Recorded PHQ-2 Total Score (If total score is 3 or more points, staff should administer the PHQ-9) 1 04/29/2024 PHQ-9 Answer Date Recorded PHQ-9 Total Score 9 04/29/2024 Comments Yes Sex and Gender Information Value Date Recorded Sex Assigned at Not on file Legal Sex Female 4:34 AM MS SQL DEVELOPER Gender Identity Not on file Sexual Orientation Not on file Obstetrics History Para Term AB IAB SAB Ectopic Multiple Livin g Live Births 2 1 1 1 1 Date Outcome GA Total Labor Labor/2nd/3rd Weight Sex Type Anes PTL Jasmyne A1 A5 Name Clin Term Current Last Filed Vital Signs Vital Sign Reading Time Taken Comments Blood Pressure 100/66 12/09/2024 12:41 PM CDT Pulse 78 12/09/2024 12:41 PM CDT Temperature 37.2 C (98.9 F) 12/09/2024 12:41 PM CDT Respiratory Rate 20 12/09/2024 12:4 1 PM CDT Oxygen Saturation 98% 12/09/2024 12: 41 PM CDT Inhaled Oxygen Concentration - - Weight 120.3 kg (265 lb 3.2 oz) 025 12:41 PM CDT Height 165.1 cm (5' 5) 12/09/2024 12:4 1 PM CDT Body Mass Index 44.13 12/09/2024 12:41 PM CDT Plan of Treatment Health Maintenance Due Date Last Done Comments Pneumococcal vaccine <65 (1 of 2 - PCV) 2006 Zoster Vaccine (1 of 2) 2006 Regular Well Visit/Exam 18-64 11/23/2024 11/24/2023 Depression Screening 04/29/2025 04/29/2024, 04/29/2024, 02/23/2024, Additional history exists Cervical Cancer Screening 11/23/2028 11/24/2023, DTaP/Tdap/Td Vaccine (8 - Td or Tdap) 04/21/2031 04/21/2021, 12/28/2012, 07/15/2002, Additional history exists Hepatitis B Screening Completed 02/06/1998 , 08/25/1997, 09/28/1996 HPV Vaccines Completed 12/28/2012, 11/2007, 01/23/2007 Hepatitis C Screening Completed 05/03/2022 Influenza Vaccine Discontinued 03/20/2024, , 01/04/2013 Varicella Vaccines Discontinued Procedures Procedure Name Priority Date/Time Associated Diagnosis Comments HIGH RISK HPV DNA DETECTION WITH GENOTYPING Routine 11/24/2023 11:42 AM CDT Encounter for screening for malignant neoplasm of cervix HEPATITIS C ANTIBODY Routine 05/03/2022 3:04 PM MS SQL DEVELOPER from Last 3 Months or Most Recently Relevant to Health Maintenance Results * High Risk HPV DNA Detection with Genotyping (Molecular component) (11/24/2023 11:42 AM CDT) HPV HR 16 Not Detected Not Detected [facility] Comment:Testing performed by : [facility], [address] [place]., [address] HPV HR 18 Not Detected Not Detected [facility] Comment:Testing performed by : [facility], [address] [place]., [address] HPV HR Non 16/18 Not Detected Not Detected [facility] Comment: Interpretive Data Nucleic acid amplification for detection of high-risk Human Papilloma virus (HPV) is performed by the Robert Alexei 6800 HPV test. This assay specifically detects HPV-16 and HPV-18 genotypes. The following HPV genotypes are detected as high-risk HPV: HPV-31, 33, 35, ,39, 45, 51, 52, 56, 58, 59, 66, and 68. This assay has been approved by the [place] Food and Drug Administration for detection of HPV in cervical specimens collected by a physician using an endocervical brush/spatula or cervical broom and placed in the ThinPrep Pap Test PreservCyt collection containers. The performance characteristics of this test have been verified by the [facility] Molecular Infectious Disease laboratory. Correlate with separately reported cytology results, as applicable. Interpretive data last revised 22 Testing performed by: [facility], [address] [place]., [address] Endocervical 11/24/2023 11:4 2 AM CDT 11/24/2023 5:34 PM CDT [facility] KATARINA ULLOA - 11/25/2023 6:12 AM CDT Clinical history and diagnosis->routine Number of vials->1 Testing type->Screening Last menstrual period (date if known)->11/20/2023 us Carmella Elkins MD LAB BODY FLUIDS AND STOOLS ORDERABLES Final Result Performing Organization Address [facility] Co de Phone Number KATARINA [address] [facility] Department [place] [address] [facility] * Hepatitis C antibody (05/03/2022 3:04 PM MS SQL DEVELOPER) Hep C Ab Nonreactive Nonreactive [facility] Comment: Interpretive Data Nonreactive: Antibodies to HCV not detected. Does NOT exclude the possibility of recent exposure to HCV. Equivocal: Equivocal for HCV antibodies. Supplemental molecular testing will be automatically performed to determine infection status in accordance with current CDC screening recommendations. Reactive: Positive for HCV antibodies. This may represent current or past HCV infection. Supplemental molecular testing will be automatically performed to determine current infection status in accordance with current CDC screening recommendations. Interpretive data was last revised on 2019. Blood 05/03/2022 3:04 PM MS SQL DEVELOPER 05/03/2022 5:52 PM MS SQL DEVELOPER us Iliana Moralez MD LAB MICROBIOLOGY - GENERAL ORDER STACY Final Result Performing Organization Address [facility] Co de Phone Number [facility] [address] Department [place] [address] from Last 3 Months or Most Recently Relevant to Health Maintenance Insurance [facility] PLUS [facility] PLUS [facility] PLUS Care Teams Optometric Tech Relationship Specialty Start Date End Date Jasmine Leavitt MD [address] [place] [address] PCP - General Family Medicine 01/28/23
--- OUTSIDE RECORDS SUMMARY | 2025-02-16 14:05 | XMS_ITS | Encounter Summary ---
Author Organization [facility] Address [address] [place] [address] Phone Care Team Providers Care Flight Operations Specialist Name Role Phone Jasmine Leavitt MD Primary Care Provi lauren Encounter Details Date Type Department Care Team (Late st Contact Info) Description 09/08/2024 Orders Only [facility] Scanning, Provider Social History Tobacco Use Types Packs/Day Years Used Date Smoking Tobacco: Never Smokeless Tobacco: Never AUDIT-C Answer Date Recorded Q1: How often do you have a drink containing alc ohol? Monthly or less 04/29/2024 Q2: How many drinks containi ng alcohol do you have on a typical day when you are drinking? 1 or 2 04/29/2024 Q3: How often do you have si x or more drinks on one occasion? Never 04/29/2024 PHQ-2 Answer Date Recorded PHQ-2 Total Score (If total score is 3 or more points, staff should administer the PHQ-9) 1 04/29/2024 PHQ-9 Answer Date Recorded PHQ-9 Total Score 9 04/29/2024 Comments No Sex and Gender Information Value Date Recorded Sex Assigned at Not on file Legal Sex Female 4:34 AM GROUND CREW LINESMAN Gender Identity Not on file Sexual Orientation Not on file documented as of this encounter Plan of Treatment Not on file documented as of this encounter Procedures Procedure Name Priority Date/Time Associated Diagnosis Comments SCAN - LABS 09/08/2024 documented in this encounter Results * SCAN - LABS (09/08/2024) us Provider Scanning Final Result documented in this encounter Visit Diagnoses Not on filedocumented in this encounter Care Teams Flight Operations Specialist Relationship Specialty Start Date End Date Jasmine Leavitt MD [address] [place] [address] PCP - General Family Medicine 01/28/23 documented as of this encounter
[2025-02-16 14:16] VITALS: BP 124/62; PULSE 85
--- NOTE | 2025-02-16 14:26 | PC.NURSE ---
1426 - Dr. Dallin Enciso notified of lab results, FHR tracing, and pts c/o back pain. Orders received. orders DC to home.
[2025-02-16 14:31] VITALS: BP 126/62; PULSE 75
--- NOTE | 2025-02-16 14:44 | PC.NURSE ---
Dr. Dallin Enciso informed of this pt's arrival with thoracic area back cramping. No contractions noted. Informed of UA results. Order received for SVE and if OK may discharge to home on Macrobid BID for 7 days.
--- NOTE | 2025-02-16 15:20 | PC.NURSE ---
Dr. Dallin Enciso informed pt states she has a history of blood in her urine since a child and she doesn't feel comfortable taking the Macrobid this late in the . Informed her SVE was closed, thick, and no presenting part palpable in pelvis. Order received for Keflex and to reassure pt that he wouldn't give her an antibiotic that wasn't safe in
--- OUTSIDE RECORDS SUMMARY | 2025-02-16 15:54 | XMS_ITS | Clinical Summary ---
Author Organization [facility] Address [address] [place] [address] Care Team Providers Care Panel Beater Name Role Phone Rosalba Mcneil MD Primary Care Provider [phone] Allergies Active Allergy Reactions Criticality Noted Date [...] on file Legal Sex Female 10:33 AM MANUFACTURING INSPECTOR Gender Identity Not on file Sexual Orientation Not on file Last Filed Vital Signs Vital Sign Reading Time Taken Comments Blood Pressure 116/64 06/02/2021 7:27 AM MANUFACTURING INSPECTOR Pulse 71 06/02/2021 7:27 AM MANUFACTURING INSPECTOR Temperature 36.7 C (98 F) 06/02/2021 7:27 AM MANUFACTURING INSPECTOR Respiratory Rate 20 06/02/2021 7:27 AM MANUFACTURING INSPECTOR Oxygen Saturation 98% 06/02/2021 7:27 AM MANUFACTURING INSPECTOR Inhaled Oxygen Concentration - - Weight 130.6 kg (288 lb) 05/29/2021 5:00 PM MANUFACTURING INSPECTOR Height 165.1 cm (5' 5) 05/29/2021 5:00 PM MANUFACTURING INSPECTOR Body Mass Index 47.93 05/29/2021 5:00 PM MANUFACTURING INSPECTOR Plan of Treatment Health Maintenance Due Date [...] patient's age to complete this topic Insurance [facility] Advance Directives * Full Code (Latest Code Status on File) Date Activated Date Inactivated Comments 05/31/2021 1:56 AM 06/02/2021 3:38 PM * Full Code Date Activated Date Inactivated Comments 05/29/2021 6:30 PM 05/31/2021 1:56 AM * Full Code Date Activated Date Inactivated Comments 05/27/2021 12:57 PM 05/27/2021 3:11 PM Care Teams Panel Beater Relationship Specialty Start Date End Date Rosalba Mcneil MD PCP - General OBGYN 05/22/21
--- OUTSIDE RECORDS SUMMARY | 2025-02-16 15:54 | XMS_ITS | Encounter Summary ---
Author Organization [facility] Address [address] [place] [address] Phone Care Team Providers Care Coal Or Ore Controller Name Role Phone Jasmine Leavitt MD Primary [...] on file Legal Sex Female 4:34 AM WILDLAND FIRE OPERATIONS SPECIALIST Gender Identity Not on file Sexual Orientation [...] on filedocumented in this encounter Care Teams Coal Or Ore Controller Relationship Specialty Start Date End Date Jasmine Leavitt MD [address] [place] [address] PCP - General Family Medicine 01/28/23 documented as of this encounter
--- OUTSIDE RECORDS SUMMARY | 2025-02-16 15:54 | XMS_ITS | Clinical Summary ---
Author Organization [facility] Address [address] [place] [id number] Care Team Providers Care Mother Helper Name Role Phone Jasmine Leavitt MD Primary [...] every 6 (six) hours as needed Active fexofenadine-ps eudoephedrine (RUSSEL-D 24) 180-240 mg per 24 hr tablet Take 1 tablet by mouth daily Active magnesium gluconate (MAGONATE) 500 mg (27 mg elemental) tabletIndicatio ns:hypomagnesem ia Active SUMAtriptan (IMITREX) 50 mg tabletIndicatio ns:Migraine with aura and without status migrainosus, not intractable Take 1 tablet (50 mg total) by mouth once as needed for migraine for up to 1 dose May repeat dose once in 2 hours if no relief. Do not exceed 2 doses in 24 hours. 9 tablet 11 4 Active albuterol HFA (PROVENTIL HFA,VENTOLIN HFA,PROAIR HFA) 90 mcg/actuation inhalerIndicati ons:Lower respiratory infection (e.g., bronchitis, pneumonia, pneumonitis, pulmonitis) Inhale 2 puffs every 6 (six) hours as needed for wheezing or shortness of breath 1 each 4 Active Additional Information Patient not taking.Reported on 10/18/2024 busPIRone (BUSPAR) 10 mg tabletIndicatio ns:Anxiety TAKE 1 TABLET BY MOUTH THREE TIMES A DAY 300 tablet 1 4 Active Additional Information Patient not taking.Reported on 10/18/2024 desvenlafaxine ER (PRISTIQ) 25 mg tablet extended release 24 hr 24 hr tabletIndicatio ns:Generalized Anxiety Disorder Take 1 tablet (25 mg total) by mouth daily 90 tablet 5 Active Additional Information Patient not taking.Reported on 10/18/2024 Synthroid 75 mcg tablet TAKE 1 TABLET BY MOUTH EVERY DAY 90 tablet 3 5 Active hydroxychloroqu ine (PLAQUENIL) 200 mg tablet Take 1 tablet (200 mg total) by mouth 2 (two) times a day 60 tablet 5 Active hydroxychloroqu ine (PLAQUENIL) 200 mg tablet Take 1 tablet (200 mg total) by mouth 2 (two) times a day 180 tablet 1 5 025 Discontin ued(Reord er) Active Problems Problem Noted Date Diagnosed Date 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 Stable. Currently on hydroxychloroquine and we will follow up with new 411 directory assistance operator. Immune compromised state from hydroxychloroquine may be contributing to frequent infections. Assessment & Plan (02/12/2023 9:18 AM AUTOMATIC SPOOLER OPERATOR): Chronic, stable Managed by rheumatology Continue current regimen Update me with any changes Non-seasonal allergic rhinitis due to pollen 11/2022 Assessment & Plan (02/12/2023 9:19 AM AUTOMATIC SPOOLER OPERATOR): Chronic, stable Continue russel Update me with any changes Anxiety 02/12/2023 Assessment & Plan (04/29/2024 9:53 AM AUTOMATIC SPOOLER OPERATOR): Chronic, worse Will add Pristiq to her regimen Continue BuSpar Continue current self-care Update me if her symptoms worsen or change Update me in one month Assessment & Plan (02/12/2023 9:38 AM AUTOMATIC SPOOLER OPERATOR): Chronic, persistent Will start cymbalta 20 mg daily Reviewed healthy habits for mood Update me if they change or worsen 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 02/12/2023 Assessment & Plan (04/29/2024 9:54 AM AUTOMATIC SPOOLER OPERATOR): Chronic, persistent Will start Pristiq for daily control, continue BuSpar Continue healthy habits for her mood Update me in one month with how she is doing Call if she develops any side effects or concerns Assessment & Plan (02/12/2023 9:38 AM AUTOMATIC SPOOLER OPERATOR): Acute, new Will start cymbalta 20 mg [...] 02/12/2023 Assessment & Plan (02/12/2023 9:44 AM AUTOMATIC SPOOLER OPERATOR): Chronic, stable Continue current regimen Continue imitrex as needed Call if s/sx worsen or do not improve Class 3 severe obesity due t o excess calories without serious comorbidity with body mass index (BMI) of 40.0 to 44.9 in adult 02/12/2023 Assessment & Plan (04/29/2024 9:53 AM AUTOMATIC SPOOLER OPERATOR): Chronic, improved BMI Follow-up includes: Continue her current healthy lifestyle changes . Assessment & Plan (02/23/2024 10:02 AM AUTOMATIC SPOOLER OPERATOR): BMI Follow-up includes: education provided. Assessment & Plan (02/12/2023 9:48 AM AUTOMATIC SPOOLER OPERATOR): BMI Follow-up includes: nutrition counseling. Comments Yes Resolved Problems Problem Noted Date Diagnosed Date Resolved Date Arrest of descent, delivered , current hospitalization 06/02/2021 02/12/2023 delivery delivered 06/02/2021 02/12/2023 Encounters Date Type Department Care Team Description 12/09/2024 12:30 PM CDT Office Visit [facility] at [address] [phone] Ronel Vásquez, AZIZA Viral URI with cough (Primary Dx); Acute cough 11/22/2024 Orders Only [facility] [address] [phone] Jasmine Leavitt MD from Last [...] on file Legal Sex Female 4:34 AM AUTOMATIC SPOOLER OPERATOR Gender Identity Not on file Sexual Orientation [...] HEPATITIS C ANTIBODY Routine 05/03/2022 3:04 PM AUTOMATIC SPOOLER OPERATOR from Last 3 Months or Most Recently Relevant to Health Maintenance Results * High Risk HPV DNA Detection with Genotyping (Molecular component) (11/24/2023 11:42 AM CDT) HPV HR 16 Not Detected Not Detected [facility] Comment:Testing performed by : [facility], [address] [place]., [address] HPV HR 18 Not Detected Not Detected [facility] Comment:Testing performed by : [facility], [address] [place]., [address] HPV HR Non 16/18 Not Detected Not [...] this test have been verified by the [facility] Molecular Infectious Disease laboratory. Correlate with separately reported cytology results, as applicable. Interpretive data last revised 22 Testing performed by: [facility], [address] [place]., [address] Endocervical 11/24/2023 11:4 2 AM CDT 11/24/2023 5:34 PM CDT Narrative [facility] - 11/25/2023 6:12 AM CDT Clinical history and diagnosis->routine Number of vials->1 Testing type->Screening Last menstrual period (date if known)->11/20/2023 Carmella Elkins MD LAB BODY FLUIDS AND STOOLS ORDERABLES Final Result Performing Organization Address [facility] Co de Phone Number [facility] [address] [facility] Department [place] [address] [facility] * Hepatitis C antibody (05/03/2022 3:04 PM AUTOMATIC SPOOLER OPERATOR) Hep C Ab Nonreactive Nonreactive [facility] Comment: Interpretive Data Nonreactive: Antibodies to HCV [...] revised on 2019. Blood 05/03/2022 3:04 PM AUTOMATIC SPOOLER OPERATOR 05/03/2022 5:52 PM AUTOMATIC SPOOLER OPERATOR Iliana Moralez MD LAB MICROBIOLOGY - GENERAL ORDER STACY Final Result Performing Organization Address [facility] Co de Phone Number [facility] [address] Department [place] [address] from Last 3 Months or Most Recently Relevant to Health Maintenance Insurance [facility] CHOICE PLUS Care Teams Mother Helper Relationship Specialty Start Date End Date Jasmine Leaivtt MD [address] [place] [address] PCP - General Family Medicine 01/28/23
--- OUTSIDE RECORDS SUMMARY | 2025-02-16 15:54 | XMS_ITS | Encounter Summary ---
Author Organization [facility] Address [facility] [place] [address] Care Team Providers Care Second Cutter Name Role Phone Rosalba Mcneil MD Primary Care Provider [phone] Encounter Details Date Type Department Care Team (Late st Contact Info) Description 06/13/[address] [facility] [address] [place] [id number] Gina Perez RN Social History Tobacco Use Types Packs/Day Years Used Date Smoking Tobacco: Never Smokeless Tobacco: Never Alcohol Use Standard Drinks/Week Comments Not Currently 0 (1 standard drink = 0.6 oz pur e alcohol) Comments No Sex and Gender Information Value Date Recorded Sex Assigned at Not on file Legal Sex Female 10:33 AM LASER TECHNICIAN Gender Identity Not on file Sexual Orientation Not on file COVID-19 Exposure Response Date Recorded In the last 10 days, have yo u been in contact with someone who was confirmed or suspected to have Coronavirus/COVID-19? No / Unsure 05/29/2021 11:18 PM LASER TECHNICIAN documented as of this encounter Functional Status * RETIRED Are you deaf or do you have serious difficulty hearing Answer Date of Assessment Author Status No 05/29/2021 11:22 PM LASER TECHNICIAN Acti ve * RETIRED Are you blind or do you have serious difficulty seeing, even when wearing glasses? Answer Date of Assessment Author Status No 05/29/2021 11:22 PM LASER TECHNICIAN Acti ve * Do you have serious difficulty walking or climbing stairs? Answer Date of Assessment Author Status No 05/29/2021 11:22 PM LASER TECHNICIAN Maeve Sahu RN Active * Do you [...] on filedocumented in this encounter Care Teams Second Cutter Relationship Specialty Start Date End Date Rosalba Mcneil MD PCP - General OBGYN 05/22/21 documented as of this encounter
--- NOTE | 2025-02-16 19:40 | PC.NURSE ---
Lab notified of need to run culture on urine already in the lab.
--- NOTE | 2025-02-18 06:44 | P.PNOB_ITS ---
OB - Triage/Final Diagnosis Visit Information Reason for evaluation: other (dehydration) Comments/Additional reasons for admission: I have assessed the risk for this patient, Alejandrina Webb, and determined that she would benefit from observation care. Evaluation Laboratory results: Laboratory Tests 02/16/25 13:40 Urine Color Yellow Urine Appearance Cloudy H Urine pH 7.0 Ur Specific [place] 1.017 Urine Protein Trace Urine Glucose (UA) Negative Urine Ketones Negative Ur Blood (Man) 2+ H Urine Nitrate Negative Urine Bilirubin Negative Urine Urobilinogen 0.2 Add Ur Microanalysis Reviewed Leukocyte Esterase Rfl 1+ H Urine RBC 11-20 H Urine WBC 0-5 Ur Squamous Epith Cells Many H Urine Bacteria Rare Urine Casts 0-2
== END 2025-02-16 15:40 | disposition home or self-care (01) ==
PROVIDERS: Admitting Provider Obstetrics & Gynecology; PCP Family Medicine; Visit Provider Obstetrics & Gynecology
DX: O26.893 Other specified pregnancy related conditions, third trimester (principal); Z3A.33 33 weeks gestation of pregnancy; E86.0 Dehydration
CPT/HCPCS: 81001; 87086; G0378; G0379